=== PATIENT | female | born 1995 | race Caucasian/White ===

== ENCOUNTER 2018-12-27 13:16 | Outpatient (CLI) | payer MEDICAID | END 2018-12-27 15:20 | disposition home or self-care (01) | LOC: OBT 13:16 → L-D 13:16 → OBT 15:20 | DX: O26.843 Uterine size-date discrepancy, third trimester (principal); Z3A.35 35 weeks gestation of pregnancy | CPT/HCPCS: 76815; 76818 ==

== ENCOUNTER 2019-01-24 15:06 | Inpatient (IN) | payer MEDICAID ==
[~2019-01-24 15:06] MED LIST: OXYTOCIN 30 UNITS/LR 500 ML BAG IV; PHENYLephrine (100 MCG/ML) 5ML SYG
[2019-01-24] MEDS ORDERED: METHYLERGONOVINE 0.2 MG INJ IM ×2 (16:00→19:00)
[2019-01-24] MEDS ORDERED: MISOPROSTOL 200 MCG TAB PR ×2 (16:00→19:00)
[2019-01-24] MEDS ORDERED: CARBOPROST 250 MCG INJ IM ×2 (16:00→19:00)
[2019-01-24] MEDS ORDERED: CEFAZOLIN 2 GM/50 ML (PMX) 50 ML IVPB (16:00)
[2019-01-24] MEDS ORDERED: OXYTOCIN 30 UNITS/LR 500 ML IV ×2 (16:00→19:00)
[2019-01-24] MEDS: LACTATED RINGER'S 1,000 ML IV ×2 (16:22→17:32)
[2019-01-24 16:35] LABS: ADD MAN DIFF? NO
[2019-01-24 16:39] LABS: BASOPHIL # 0.1 10^3/ul (0.0-0.1); BASOPHILS % 0.7 % (0.0-2.0); EOSINOPHILS # 0.2 10^3/ul (0.0-0.5); EOSINOPHILS % 2.9 % (0.0-7.0); HEMATOCRIT 38.9 % (37.0-47.0); HEMOGLOBIN 13.4 g/dl (12.0-16.0); LYMPHOCYTES % 25.5 % (15.0-51.0); MEAN CORPUSCULAR HEMOGLOBIN 27.9 pg (29.0-33.0); MEAN CORPUSCULAR HGB CONC 34.4 g/dl (32.0-37.0); MEAN CORPUSCULAR VOLUME 80.9 fl (82.0-101.0); MEAN PLATELET VOLUME 10.8 fl (7.4-10.4); MONOCYTE # 0.5 10^3/ul (0.3-0.9); NEUTROPHIL # 4.9 10^3/ul (1.6-7.5); NEUTROPHILS % 63.8 % (39.0-77.0); PLATELET COUNT 304 10^3/UL (140-415); RED BLOOD COUNT 4.81 10^6/ul (4.20-5.40); RED CELL DISTRIBUTION WIDTH 13.5 % (11.5-14.5)
[2019-01-24 16:39] LABS: WHITE BLOOD COUNT 7.7 10^3/ul (4.8-10.8)
[2019-01-24 16:58] LABS: INR 0.81; PROTIME 11.3 Sec (11.9-14.9); PT RATIO 0.9
[2019-01-24 16:59] LABS: PARTIAL THROMBOPLASTIN TIME 27.3 Sec (23.0-35.0)
[2019-01-24] MEDS ORDERED: METOCLOPRAMIDE 10 MG INJ IV (17:30)
[2019-01-24] MEDS ORDERED: FENTAnyl 50 MCG/ML VIAL IV ×3 (17:30)
[2019-01-24] MEDS ORDERED: KETOROLAC 30 MG INJ IV (17:30)
[2019-01-24] MEDS ORDERED: HYDROmorphONE 0.5 MG/0.5 ML SYG IV ×2 (17:30)
[2019-01-24] MEDS ORDERED: DIPHENHYDRAMINE 50 MG INJ IV ×2 (17:30)
[2019-01-24] MEDS ORDERED: ONDANSETRON 4 MG INJ IV ×2 (17:30)
[2019-01-24] MEDS ORDERED: ALBUTEROL 0.083% (NEB) 2.5 MG/3 ML AMP HHN (17:30)
[2019-01-24] MEDS ORDERED: NALOXONE (0.4 MG/ML) INJ IV (17:30)
[2019-01-24] MEDS ORDERED: HYDROmorphONE 1 MG/5 ML IV SYRINGE IV ×3 (17:30)
[2019-01-24] MEDS ORDERED: morphine SULFATE/PF (10 MG/10 ML) INJ (17:42)
[2019-01-24] MEDS ORDERED: NACL 0.9% 3 ML SYG IV (19:00)
[2019-01-24] MEDS ORDERED: OXYCODONE/ACETAMINOPHEN (5/325) TAB PO (19:00)
[2019-01-24] MEDS: CEFAZOLIN 2 GM/50 ML (PMX) 50 ML IVPB ×2 (19:00→23:45)
[2019-01-24] MEDS: OXYTOCIN 30 UNITS/LR 500 ML IV ×2 (19:08→23:02)
[2019-01-24] MEDS: LANOLIN HPA 1 PKT TOP (22:58)
[2019-01-24] MEDS: IBUPROFEN 600 MG TAB PO (23:45)
[2019-01-25] MEDS: KETOROLAC 30 MG INJ IV ×2 (05:42→15:32)
[2019-01-25] MEDS: IBUPROFEN 600 MG TAB PO ×3 (05:46→18:00)
[2019-01-25] MEDS: CEFAZOLIN 2 GM/50 ML (PMX) 50 ML IVPB ×2 (07:16→15:07)
[2019-01-25 08:24] LABS: ADD MAN DIFF? NO
[2019-01-25 08:28] LABS: WHITE BLOOD COUNT 10.9 10^3/ul (4.8-10.8)
[2019-01-25 08:28] LABS: BASOPHILS % 0.4 % (0.0-2.0); EOSINOPHILS # 0.1 10^3/ul (0.0-0.5); EOSINOPHILS % 1.3 % (0.0-7.0); HEMATOCRIT 33.5 % (37.0-47.0); HEMOGLOBIN 11.5 g/dl (12.0-16.0); LYMPHOCYTES # 1.8 10^3/ul (0.8-2.9); LYMPHOCYTES % 16.5 % (15.0-51.0); MEAN CORPUSCULAR HGB CONC 34.3 g/dl (32.0-37.0); MEAN CORPUSCULAR VOLUME 81.7 fl (82.0-101.0); MONOCYTE # 0.7 10^3/ul (0.3-0.9); MONOCYTES % 6.8 % (0.0-11.0); NEUTROPHIL # 8.2 10^3/ul (1.6-7.5); NEUTROPHILS % 74.7 % (39.0-77.0); PLATELET COUNT 239 10^3/UL (140-415); RED CELL DISTRIBUTION WIDTH 13.4 % (11.5-14.5)
[2019-01-25 22:08] LABS: RAPID PLASMA REAGIN NONREACTIVE (NR)
[2019-01-25] MEDS: OXYCODONE/ACETAMINOPHEN (5/325) TAB PO (22:46)
[2019-01-26] MEDS: IBUPROFEN 600 MG TAB PO ×5 (05:39→23:43)
[2019-01-26] MEDS: OXYCODONE/ACETAMINOPHEN (5/325) TAB PO (13:27)
[2019-01-27] MEDS: OXYCODONE/ACETAMINOPHEN (5/325) TAB PO (00:35)
[2019-01-27] MEDS: IBUPROFEN 600 MG TAB PO ×2 (05:37→12:11)
== END 2019-01-27 17:28 | disposition home or self-care (01) | DRG 785 ==
LOC: L-D 15:06 → PP1 21:53
PROVIDERS: Obstetrics & Gynecology
PROC: 10D00Z1 Extraction of Products of Conception, Low, Open Approach (ICD-10-PCS; principal; 2019-01-24 17:00)
PROC: 0UL70ZZ Occlusion of Bilateral Fallopian Tubes, Open Approach (ICD-10-PCS; 2019-01-24 17:00)
PROC: 3E033VJ Introduction of Other Hormone into Peripheral Vein, Percutaneous Approach (ICD-10-PCS; 2019-01-24 17:00)
DX: O34.211 Maternal care for low transverse scar from previous cesarean delivery (principal); Z3A.39 39 weeks gestation of pregnancy; Z37.0 Single live birth; Z30.2 Encounter for sterilization
CPT/HCPCS: 85025; 85610; 85730; 86592; 86850; 86900; 86901; 88302; 99464